=== PATIENT | male | born 1995 | race Caucasian/White ===

== ENCOUNTER 2016-10-20 11:02 | Emergency (ER) | payer MEDICAID, OTHER ==
[~2016-10-20] VITALS: Ht 170.2 cm; Wt 72.4 kg
[2016-10-20 11:14] VITALS: Ht 170.2 cm; Wt 72.4 kg
--- NOTE | 2016-10-20 11:57 | ERD ---
ER Documentation Chief Complaint Date/Time DATE: 10/20/16 TIME: 11:53 Chief Complaint R knee pain and swelling after GLF X 2 weeks ago. HPI This is a 20-year-old male presented to emergency department for right pain 2 weeks. Patient states he was running when he tripped and fell landing on his right knee. Patient states he had severe pain and swelling at time of incident. Pain has remained about the same however swelling has decreased. No ankle or foot pain. No loss of sensation or numbness or tingling. Patient walking normally. No limp. ROS All systems reviewed and are negative except as per history of present illness. Medications Home Meds Active Scripts Ibuprofen* (Motrin*) 400 Mg Tab, 400 MG PO Q6, #15 TAB Prov:ALYCIA GILMAN [employer] 10/20/16 PMhx/Soc Medical and Surgical Hx: pt denies Medical Hx, pt denies Surgical Hx Hx Alcohol Use: No Hx Substance Use: No Smoking Status: Never smoker Physical Exam Vitals Vital Signs Date Time Temp Pulse Resp B/P Pulse Ox O2 Delivery O2 Flow Rate FiO2 10/20/16 11:14 98.2 83 20 128/71 100 Physical Exam Const: No acute distress, alert Head: Atraumatic Eyes: Normal Conjunctiva ENT: Normal External Ears, Nose and Mouth. Neck: Full range of motion..~ No meningismus. Resp: Clear to auscultation bilaterally Cardio: Regular rate and rhythm, no murmurs Abd: Soft, non tender, non distended. Normal bowel sounds Skin: No petechiae or rashes Back: No midline or flank tenderness Ext: Full mobility to bilateral lower extremities with some pain to medial aspect of right knee with full extension. No swelling. No skin changes, bruising or erythema. Neur: Awake and alert Psych: Normal Mood and Affect Results 24 hrs Current Medications Medications (Trade) Dose Ordered Sig/Kevon Route PRN Reason Start Time Stop Time Status Last Admin Dose Admin Ibuprofen (Motrin) 600 mg ONCE ONCE PO 10/20/16 12:00 10/20/16 12:01 DC 10/20/16 12:07 Procedures/MDM ED COURSE: The patient was stable throughout ED course. I kept the patient and/or family informed of laboratory and diagnostic imaging results throughout the ED course. Imaging X-ray right knee Patient: DOMINGO LARSEN : 1995 Age: 20 Sex: M MR #: [id number] [facility] #: [id number] DOS: 10/20/16 1152 Ordering MD: ALYCIA GILMAN NP Location: [facility] Room/Bed: PROCEDURE: XR Knee. CLINICAL INDICATION: Right knee pain TECHNIQUE: 3 images of the right knee are available for review. COMPARISON: None available FINDINGS: There is no acute fracture. Alignment is normal. Joint spaces are preserved. There is a moderate size nonspecific knee joint effusion. IMPRESSION: 1. No radiographic evidence of acute osseous abnormality. 2. Moderate sized nonspecific knee joint effusion. MDM: This is a 20-year-old male who presents to the emergency department for right knee pain 2 weeks. Patient fell while running injuring his right knee. No swelling on exam. Patient has some tenderness with full extension of the right knee. Patient given ibuprofen on the ED and an Alan wrap was applied. Remains neurovascularly intact pre-and post Alan wrap application. Walking without difficulty. X-ray right knee reviewed by radiologist as no radiographic evidence of acute osseous abnormality. Moderate sized nonspecific knee joint effusion. Patient states pain has improved after medication. Appears calm and comfortable throughout ED visit. Low suspicion for acute dislocation or fracture. Low suspicion for compartment syndrome. Differential diagnosis includes but not limited to knee sprain versus ligament injury. Patient is appropriate for outpatient management will be given prescription for ibuprofen. Instructed patient to follow-up with primary care provider in the next 24-48 hours for reassessment and additional management. Resources provided. Return to ED for any high fever, chest pain, difficulty breathing, shortness breath, wheezing, vomiting, diarrhea, abdominal pain or any new or worsening symptoms. Patient verbalizes understanding. All questions answered at discharge. German translation use during this encounter. Departure Diagnosis: Primary Impression: Knee pain Laterality: right Chronicity: acute Qualified Code: M25.561 - Acute pain of right knee Condition: Stable ALYCIA GILMAN NP Oct 20, 2016 11:57
[2016-10-20] MEDS ORDERED: IBUPROFEN 600 MG TAB PO ONE (12:00)
--- NOTE | 2016-10-20 12:36 | RADRPT ---
PROCEDURE: XR Knee. CLINICAL INDICATION: Right knee pain TECHNIQUE: 3 images of the right knee are available for review. COMPARISON: None available FINDINGS: There is no acute fracture. Alignment is normal. Joint spaces are preserved. There is a moderate size nonspecific knee joint effusion. IMPRESSION: 1. No radiographic evidence of acute osseous abnormality. 2. Moderate sized nonspecific knee joint effusion. RPTAT: UU .Darryn Rubi MD, MD Date Time Electronically viewed and signed by .Darryn Rubi MD, on 10/20/2016 12:36 .K/
[2016-10-20] MEDS ORDERED: IBUP400T22 PO (12:44)
== END 2016-10-20 13:06 | disposition home or self-care (01) ==
LOC: FTE 11:02
DX: S89.91XA Unspecified injury of right lower leg, initial encounter (principal); W01.0XXA Fall on same level from slipping, tripping and stumbling without subsequent striking against object, initial encounter; Y92.9 Unspecified place or not applicable
CPT/HCPCS: 73562; Z7502; Z7610